=== PATIENT | male | born 1955 | race Two or more races ===

== ENCOUNTER 2022-04-14 08:57 | Emergency (ER) | payer MEDICARE, MEDICAID ==
[~2022-04-14] VITALS: Ht 162.6 cm; Wt 57.0 kg
[2022-04-14] MEDS ORDERED: SODIUM CHLORIDE 0.9% 1,000 ML IV ONE (10:00)
[2022-04-14] MEDS ORDERED: CATHFLO ACTIVASE (ALTEPLASE) 2 MG VIAL IV ONE (10:15)
[2022-04-14 10:17] LABS: Basophils # (auto) 0 10 ^3/uL (0-0.2); Basophils % (auto) 0.1 % (0.0-2.0); Eosinophils # (auto) 0 10 ^3/uL (0-0.8); Eosinophils % (auto) 0.2 % (0.0-7.0); Hematocrit 33.6 % (41.0-53.0); Hemoglobin 11.2 g/dL (13.5-17.5); Lymphocytes # (auto) 0.3 10 ^3/uL (0.4-5.4); Lymphocytes % (auto) 4.1 % (10.0-50.0); Mean Corpuscular Hemoglobin 32.4 pg (28.0-32.0); Mean Corpuscular Hgb Conc. 33.3 g/dL (32.0-36.0); Mean Corpuscular Volume 97.2 fL (80.0-100.0); Monocytes # (auto) 0.2 10 ^3/uL (0-1.3); Monocytes % (auto) 2.3 % (0.0-12.0); Neutrophils % (auto) 93.3 % (37.0-80.0); Red Blood Cells 3.46 10^6/uL (4.5-5.90); Red Cell Distribution Width 14.1 % (11.8-14.3); White Blood Cell 7.5 10^3/uL (4.4-10.8)
[2022-04-14 10:37] LABS: INR 0.98 (0.9-1.15); Partial Thromboplastin Time 34.3 sec (24.6-33.4)
[2022-04-14 11:45] LABS: Potassium 3.6 mmol/L (3.5-5.1)
[2022-04-14 11:46] LABS: BUN/Creatinine Ratio 16.2; Bilirubin, Total 0.6 mg/dL (0.2-1.0); Calcium 9.3 mg/dL (8.5-10.1)
[2022-04-14 11:47] LABS: Albumin 1.9 g/dL (3.4-5.0); Magnesium 2.9 mg/dL (1.6-2.6); Total Protein 6.9 g/dL (6.4-8.2)
[2022-04-14] MEDS ORDERED: STERILE WATER 10 ML ONE (13:53)
[2022-04-14] MEDS ORDERED: ONDANSETRON HCL 4 MG/2 ML VIAL IV PRN (17:00)
[2022-04-14] MEDS ORDERED: DOCUSATE SOD 100 MG CAP PO PRN (17:00)
[2022-04-14] MEDS ORDERED: hydrALAZINE HCL 20 MG/ML VL IV PRN (17:00)
[2022-04-14] MEDS ORDERED: HYDROcodone-ACET 5/325MG TAB PO PRN (17:00)
[2022-04-14 21:38] VITALS: BP 127/61
[2022-04-14] MEDS ORDERED: HEPARIN SODIUM (PORCINE) 5000 UNITS/ML 1ML VIAL SC SCH (22:00)
== END 2022-04-14 12:40 | disposition short-term general hospital (02) ==
LOC: ER 08:57 → EDBD 08:57 → ER 12:40
DX: T82.898A Other specified complication of vascular prosthetic devices, implants and grafts, initial encounter (principal); I69.352 Hemiplegia and hemiparesis following cerebral infarction affecting left dominant side; R47.01 Aphasia; D53.9 Nutritional anemia, unspecified; E43 Unspecified severe protein-calorie malnutrition; I12.0 Hypertensive chronic kidney disease with stage 5 chronic kidney disease or end stage renal disease; N18.6 End stage renal disease; Z99.2 Dependence on renal dialysis; Z68.21 Body mass index [BMI] 21.0-21.9, adult
CPT/HCPCS: 36415; 71045; 80053; 83735; 85025; 85610; 85730; 93005; 93926; 99285; J2997